=== PATIENT | male | born 1945 | race Caucasian/White ===

== ENCOUNTER 2018-05-27 06:14 | Day surgery (SDC) | payer MEDICARE ==
[~2018-05-27] VITALS: Ht 172.7 cm; Wt 81.6 kg
[~2018-05-27 06:14] MED LIST: ASPIRIN ADULT L81 M3; AZELASTINE0.1 %; CELEBREX200 M1; CLONAZEPAM1 MG PO; CYMBALTA30 MG PO; LYRICA100 MG PO; PRAMIPEXOLE0.125 MG PO; TRAMADOL HCL50 MG PO; VALACYCLOVIR H500 MG PO; ZOCOR20 M1 PO
[2018-05-27 08:18] VITALS: BP 154/87
== END 2018-05-27 08:18 | disposition home or self-care (01) ==
LOC: ORM 06:14
PROVIDERS: ATTEND Anesthesiology Pain Medicine
PROC: 3E0R33Z Introduction of Anti-inflammatory into Spinal Canal, Percutaneous Approach (ICD-10-PCS; principal; 2018-05-27)
PROC: B01B1ZZ Fluoroscopy of Spinal Cord using Low Osmolar Contrast (ICD-10-PCS; 2018-05-27)
DX: M51.36 Other intervertebral disc degeneration, lumbar region (principal); M54.5 Low back pain; M48.061 Spinal stenosis, lumbar region without neurogenic claudication
CPT/HCPCS: Q9967

== ENCOUNTER 2018-06-10 05:59 | Day surgery (SDC) | payer MEDICARE ==
[~2018-06-10] VITALS: Ht 172.7 cm; Wt 81.6 kg
[2018-06-10 07:57] VITALS: BP 147/86
== END 2018-06-10 07:55 | disposition home or self-care (01) ==
LOC: ORM 05:59
PROVIDERS: ATTEND Anesthesiology Pain Medicine
PROC: 3E0R33Z Introduction of Anti-inflammatory into Spinal Canal, Percutaneous Approach (ICD-10-PCS; principal; 2018-06-10)
PROC: B01B1ZZ Fluoroscopy of Spinal Cord using Low Osmolar Contrast (ICD-10-PCS; 2018-06-10)
DX: M51.36 Other intervertebral disc degeneration, lumbar region (principal); M54.5 Low back pain
CPT/HCPCS: Q9967

== ENCOUNTER 2018-06-24 06:08 | Day surgery (SDC) | payer MEDICARE ==
[~2018-06-24] VITALS: Ht 172.7 cm; Wt 79.4 kg
[2018-06-24 07:37] VITALS: BP 134/75
== END 2018-06-24 07:56 | disposition home or self-care (01) ==
LOC: ORM 06:08
PROVIDERS: ATTEND Anesthesiology Pain Medicine
PROC: 3E0R33Z Introduction of Anti-inflammatory into Spinal Canal, Percutaneous Approach (ICD-10-PCS; principal; 2018-06-24)
PROC: B01B1ZZ Fluoroscopy of Spinal Cord using Low Osmolar Contrast (ICD-10-PCS; 2018-06-24)
DX: M51.36 Other intervertebral disc degeneration, lumbar region (principal); M54.5 Low back pain
CPT/HCPCS: Q9967